=== PATIENT | female | born 1960 | race African-American/Black ===

== ENCOUNTER 2018-01-22 06:30 | Emergency (ER) | payer OTHER ==
[~2018-01-22] VITALS: Ht 170.2 cm; Wt 113.0 kg
[~2018-01-22 06:30] MED LIST: ALBU2.5V13
[2018-01-22 06:34] VITALS: BP 146/96
== END 2018-01-22 07:30 | disposition left against medical advice (07) ==
LOC: ER 07:30
DX: R45.851 Suicidal ideations (principal); F31.9 Bipolar disorder, unspecified; F20.9 Schizophrenia, unspecified
CPT/HCPCS: 99283

== ENCOUNTER 2021-07-12 18:17 | Emergency (ER) | payer MEDICAID, OTHER ==
[~2021-07-12] VITALS: Ht 165.1 cm; Wt 83.0 kg
[2021-07-12 18:29] VITALS: BP 154/82
[2021-07-12] MEDS ORDERED: T3 PO ×2 (19:56)
[2021-07-13] MEDS ORDERED: T3 PO (15:43)
== END 2021-07-12 20:15 | disposition home or self-care (01) ==
LOC: ER 18:17
DX: S99.822A Other specified injuries of left foot, initial encounter (principal); X58.XXXA Exposure to other specified factors, initial encounter; Y93.89 Activity, other specified; Y92.89 Other specified places as the place of occurrence of the external cause; Y99.8 Other external cause status; F31.9 Bipolar disorder, unspecified; F20.9 Schizophrenia, unspecified
CPT/HCPCS: 73630; 99283

== ENCOUNTER 2021-07-13 15:19 | Emergency (ER) | payer MEDICAID, OTHER ==
[~2021-07-13] VITALS: Ht 165.1 cm; Wt 100.0 kg
[2021-07-13 15:24] VITALS: BP 134/88
[2021-07-13] MEDS ORDERED: T3 PO (15:43)
== END 2021-07-13 17:16 | disposition home or self-care (01) ==
LOC: ER 15:19
DX: S91.202A Unspecified open wound of left great toe with damage to nail, initial encounter (principal); I10 Essential (primary) hypertension; X58.XXXA Exposure to other specified factors, initial encounter; Y93.89 Activity, other specified; Y92.018 Other place in single-family (private) house as the place of occurrence of the external cause
CPT/HCPCS: 99282

== ENCOUNTER 2023-04-14 14:43 | Emergency (ER) | payer MEDICAID, OTHER ==
[~2023-04-14] VITALS: Ht 160 cm; Wt 89.0 kg
[~2023-04-14 14:43] MED LIST changes: +T3 PO
[2023-04-14 14:52] VITALS: BP 178/89; PULSE 79; RESP 20; TEMP 98.9; O2SAT 99
[2023-04-14] MEDS ORDERED: IBUPROFEN 400MG TABLET PO ONE (19:15)
== END 2023-04-14 20:21 | disposition left against medical advice (07) ==
LOC: ER 14:43
DX: M79.671 Pain in right foot (principal); I10 Essential (primary) hypertension
CPT/HCPCS: 73650; 81025; 99283

== ENCOUNTER 2024-04-21 16:14 | Emergency (ER) | payer OTHER ==
[~2024-04-21] VITALS: Ht 165.1 cm; Wt 100.2 kg
[2024-04-21 16:23] VITALS: BP 136/69; PULSE 91; RESP 16; TEMP 36.8; O2SAT 96
[2024-04-21] MEDS ORDERED: DICL100G58 TP (17:04)
== END 2024-04-21 17:59 | disposition home or self-care (01) ==
LOC: ER 16:25
DX: S43.401A Unspecified sprain of right shoulder joint, initial encounter (principal); M19.011 Primary osteoarthritis, right shoulder; I10 Essential (primary) hypertension; X58.XXXA Exposure to other specified factors, initial encounter; Y93.89 Activity, other specified; Y92.89 Other specified places as the place of occurrence of the external cause; Y99.8 Other external cause status
CPT/HCPCS: 73030; 99283

== ENCOUNTER 2024-05-23 14:43 | Emergency (ER) | payer OTHER ==
[~2024-05-23] VITALS: Ht 170.2 cm; Wt 86.0 kg
[~2024-05-23 14:43] MED LIST changes: +DICL100G58 TP
[2024-05-23 14:45] VITALS: O2SAT 98
[2024-05-23 14:57] VITALS: BP 133/68; PULSE 100; RESP 16; TEMP 37; O2SAT 99
[2024-05-23] MEDS: IBUPROFEN 400MG TABLET PO ONE (18:00)
[2024-05-23] MEDS: HYDROCODONE/ACETAMINOPHEN 5/325MG TABLET PO ONE (18:43)
[2024-05-23] MEDS ORDERED: HYDR-4001 MT (19:06)
[2024-05-23] MEDS ORDERED: IBUP-2028 MT (19:06)
[2024-05-23] MEDS ORDERED: LIDO700A15 TP (19:06)
== END 2024-05-23 19:22 | disposition home or self-care (01) ==
LOC: ER 14:43
DX: S49.91XA Unspecified injury of right shoulder and upper arm, initial encounter (principal); M47.812 Spondylosis without myelopathy or radiculopathy, cervical region; M19.011 Primary osteoarthritis, right shoulder; Z79.899 Other long term (current) drug therapy; V89.2XXA Person injured in unspecified motor-vehicle accident, traffic, initial encounter; Y93.89 Activity, other specified; Y92.410 Unspecified street and highway as the place of occurrence of the external cause; Y99.8 Other external cause status
CPT/HCPCS: 71045; 72040; 73030; 99284